=== PATIENT | male | born 1945 | race Caucasian/White ===

== ENCOUNTER 2020-11-04 06:28 | Day surgery (SDC) | payer OTHER ==
[2020-10-28 09:40] VITALS: BMI 29.8
[2020-11-04] MEDS ORDERED: BUPIVACAINE HCL/PF 0.25% (2.5MG/ML) 10 ML VIAL ONE (07:14)
[2020-11-04] MEDS ORDERED: LIDOCAINE HCL 2% (20ML MULTI-DOSE VIAL) ONE (07:15)
[2020-11-04] MEDS ORDERED: MIDAZOLAM HCL 2 MG/2 ML SINGLE DOSE VIAL ONE (07:42)
[2020-11-04] MEDS ORDERED: PROPOFOL 20 ML ONE (07:42)
[2020-11-04 08:51] VITALS: TEMP 97.7
[2020-11-04 09:04] VITALS: BP 137/66; PULSE 66
== END 2020-11-04 09:15 | disposition home or self-care (01) ==
LOC: FASU 06:28
PROVIDERS: ATTEND Orthopaedic Surgery Hand Surgery
PROC: 01N50ZZ Release Median Nerve, Open Approach (ICD-10-PCS; principal; 2020-11-04 08:00)
DX: G56.02 Carpal tunnel syndrome, left upper limb (principal)